=== PATIENT | male | born 1955 | race Caucasian/White ===

== ENCOUNTER → 2017-08-19 | Day surgery (SDC) | payer OTHER ==
[~2017-08-19] MED LIST: FENTANYL CITRATE/PF 100MCG/2 ML INJ ONE; MIDAZOLAM HCL 2 MG/2 ML VIAL ONE; MULTI-VITAMIN1 EACH; PROPOFOL IV EMULSION 10 MG/ML 50 ML VIAL ONE; ZYRTEC10 M3
--- NOTE | 2017-08-19 16:10 | Operative Report ---
DATE OF PROCEDURE: August 19, 2017 REFERRING PHYSICIAN: Dr. Dain Mascorro. PROCEDURE PERFORMED: Colonoscopy and polypectomy with biopsies. INDICATIONS FOR COLONOSCOPY: Colorectal cancer screening, change in bowel habits. MEDICATION: Patient was done under MAC. Please see anesthesiologist's note. PROCEDURE: With patient in the left lateral decubitus position, the flexible fiberoptic Olympus colonoscope was inserted into the rectum with ease and advanced all the way to the cecum. A minute polyp was hot biopsied from the cecum. The ileocecal valve was intubated, and the scope was advanced into the terminal ileum. Biopsies were obtained. The scope was then withdrawn back into the colon. It was then withdrawn slowly, and the mucosa overlying the ascending and the transverse appeared to be within normal limits. The left colon revealed some patchy areas of erythema and moderate edema, and biopsies were obtained. Four minute polyps were hot biopsied from the sigmoid colon. The rectum also manifested similar inflammatory changes, and biopsies were obtained. The scope was then retroflexed into the distal rectum and small internal hemorrhoids were noted, none of which was actively bleeding. The scope was then straightened out. The rectosigmoid area as well as the distal rectal area were decompressed. The scope was subsequently withdrawn after securing an adequate stool specimen that was sent for the appropriate stool studies. Patient tolerated the procedure well. IMPRESSION: 1. Mild patchy left-sided colitis. 2. Sigmoid colon polyps times 4 hot biopsied. 3. Proctitis, biopsied. 4. Internal hemorrhoids, none actively bleeding. PLAN: Follow up histology. Follow up stool studies. Initiate Bentyl 10 mg 1 p.o. t.i.d. and VSL#3 DS 1 p.o. daily. Patient will need a followup colonoscopy in 3 years. Job#: [id number] EV cc:DAIN MASCORRO DO
[2017-08-19 16:32] LABS: WBC,FECAL (FECAL LACTOFERRIN) NEGATIVE (NEGATIVE)
[2017-08-20 11:19] LABS: C DIFFICILE TOXIN A&B AMP PROB NEGATIVE (NEGATIVE)
== END | disposition home or self-care (01) ==
LOC: OR 12:51
PROVIDERS: ATTEND Internal Medicine Gastroenterology
DX: K51.50 Left sided colitis without complications (principal); D12.0 Benign neoplasm of cecum; K62.1 Rectal polyp; K62.89 Other specified diseases of anus and rectum; K64.8 Other hemorrhoids; I10 Essential (primary) hypertension; F17.200 Nicotine dependence, unspecified, uncomplicated; Z01.810 Encounter for preprocedural cardiovascular examination; Z68.29 Body mass index [BMI] 29.0-29.9, adult
CPT/HCPCS: 45380; 45384; 83630; 83993; 87045; 87177; 87328; 87493; 93005; J2250; 45378

== ENCOUNTER → 2017-08-27 | Day surgery (SDC) | payer OTHER ==
[2017-08-21 14:26] LABS: BASOPHILS # (AUTO) 0.1 (0.0-0.1); BASOPHILS % 1.2 % (0.0-1.0); EOSINOPHILS # (AUTO) 0.2 (0.0-0.4); EOSINOPHILS % 2.7 % (0.0-6.0); HEMATOCRIT 44.6 % (38.2-49.6); HEMOGLOBIN 15.8 g/dL (14.0-18.0); LYMPHOCYTES # (AUTO) 3.3 (1.0-3.2); LYMPHOCYTES % 40.5 % (18.0-39.1); MEAN CORPUSCULAR HEMOGLOBIN 30.2 pg (28-32); MEAN CORPUSCULAR HGB CONC 35.4 g/dL (31-35); MEAN CORPUSCULAR VOLUME 85.3 fL (81-99); MONOCYTES # (AUTO) 0.6 (0.2-0.8); NEUTROPHILS # (AUTO) 3.9 (2.1-6.9); NEUTROPHILS % 48.4 % (38.7-80.0); PLATELET COUNT 195 x10e3/uL (140-360); RED BLOOD COUNT 5.23 x10e6/uL (4.3-5.7); RED CELL DISTRIBUTION WIDTH 12.8 % (11.7-14.4)
--- NOTE | 2017-08-21 14:48 | Diagnostic Imaging Report ---
PROCEDURE: Frontal and lateral views of the chest. COMPARISON: None. INDICATIONS: PRE OP PROSTATE BIOPSY FINDINGS: Lines/tubes: None. Lungs: Left lateral costophrenic angles is outside the field of view. The lungs are well inflated and clear. There is no evidence of pneumonia or pulmonary edema. Pleura: There is no pleural effusion or pneumothorax. Heart and mediastinum: The heart and the mediastinum are normal. Bones: No acute bony abnormality. Degenerative changes of spine. IMPRESSION: 1. No acute cardiopulmonary disease. Dictated by: Sukh Chaney M.D. on 08/21/2017 at 14:51 Electronically approved by: Sukh Chaney M.D. on 08/21/2017 at 14:51
[~2017-08-27] MED LIST changes: +CEFTRIAXONE SOD 1 GM VIAL ONE; +LIDOCAINE HCL 2% LOCAL INJ 5 ML SDV VIAL INJ ONE; -MIDAZOLAM HCL 2 MG/2 ML VIAL ONE; +PROPOFOL IV EMULSION 10 MG/ML 20 ML VIAL ONE; -PROPOFOL IV EMULSION 10 MG/ML 50 ML VIAL ONE
--- NOTE | 2017-09-12 10:29 | Operative Report ---
DATE OF PROCEDURE: August 27, 2017 PREOPERATIVE DIAGNOSIS: Elevated prostatic-specific antigen. POSTOPERATIVE DIAGNOSIS: Elevated prostatic-specific antigen. PROCEDURE PERFORMED: Transrectal ultrasound and biopsy of the prostate. ANESTHESIA: General anesthesia. ESTIMATED BLOOD LOSS: Minimal. INDICATIONS: Mr. Kendrick Ramirez is a 62-year-old gentleman who known recent issues with elevation of his PSA and a suspicion on repeat PSA. He now presents for standard biopsies of the prostate. PROCEDURE IN DETAIL: The patient was brought into the operating room and placed in the supine position. After administration of MAC anesthesia, was placed in the left lateral decubitus position and prepped in the usual fashion. The prostate revealed a normal size prostate with moderate induration bilaterally. Transrectal ultrasonography of the gland was performed. This revealed a prostate approximately 20 mL in volume. There were no obvious hypoechoic lesions noted on ultrasound. Standard 12 biopsies were obtained, 6 from each side in the standard fashion. These were sent individually to pathology for microscopic analysis. There was minimal bleeding noted at the end of the procedure. The patient was cleaned and returned to the supine position. Anesthesia was reversed and he was transferred to a bed, and taken to the postanesthesia care unit in good condition. Of note, the needle and instrument count were correct at the conclusion of the case. Job#: [id number]
== END | disposition home or self-care (01) ==
LOC: OR 10:17
PROVIDERS: ATTEND Urology
DX: C61 Malignant neoplasm of prostate (principal); N41.0 Acute prostatitis; N41.1 Chronic prostatitis; N40.3 Nodular prostate with lower urinary tract symptoms; J40 Bronchitis, not specified as acute or chronic; Z01.812 Encounter for preprocedural laboratory examination; Z01.818 Encounter for other preprocedural examination; Z68.30 Body mass index [BMI] 30.0-30.9, adult; Z87.891 Personal history of nicotine dependence
CPT/HCPCS: 36415; 55700; 71046; 76872; 76942; 85025; 88305; J0696; J2001